=== PATIENT | female | born 1985 | race Caucasian/White ===

== ENCOUNTER 2017-01-19 19:57 | Emergency (ER) | payer MEDICARE, OTHER ==
[2017-01-19 20:09] VITALS: BP 125/75
[2017-01-19] MEDS ORDERED: ALBUTEROL SULFATE/IPRATROPIUM 3 ML NEBU IH ONE ×2 (20:40→20:48)
--- NOTE | 2017-01-19 20:41 | ERNOTE ---
Date of Service: 01/19/17 Time Seen by Provider: 01/19/17 20:37 Stated Complaint: SINUS. COUGH. Presenting Symptoms:: cough, sore throat Source: patient, family Exam Limitations: no limitations Immunizations: IMMUNIZATION HX Immunizations Up to Date Yes History of Influenza Vaccine No Hx Pneumococcal Vaccination No Allergies/Adverse Reactions: Allergies amoxicillin [Amoxicillin] Allergy (Verified 01/19/17 20:09) Penicillins Allergy (Verified 01/19/17 20:09) Home Medications: HOME MEDICATIONS Insulin Aspart [Novolog] 10 unit SQ BID 11/06/12 [Last Taken Unknown] Insulin Glargine,Hum.rec.anlog [Lantus] 20 units SC BID 01/25/15 [Last Taken 20:45] Metformin HCl ER BID 11/19/16 [Last Taken Unknown] Cephalexin 500 mg PO BID #14 tablet 01/19/17 [Last Taken Unknown] Ipratropium/Albuterol Sulfate [Combivent Respimat Inhal [place]] 2 puff IH QID #1 inhaler 01/19/17 [Last Taken Unknown] - History of Present Ilness Narrative: Has had one week of cough initially non-productive but now some minimal greenish sputum. Has developed a sore throat but has not had any chills or fever. Denies dyspnea. No rash. Review of Systems - Review of Systems EYE: Present: no symptoms reported ENT: Present: See HPI Respiratory: Present: See HPI Cardiology: Present: no symptoms reported Gastrointestinal/Abdominal: Present: no symptoms reported Skin: Present: no symptoms reported Neurological: Present: no symptoms reported - Patient's Past Medical History Patient History - Medical: Diabetes Type 2 Insulin Dependent Patient History - Cardiac/Respiratory: No pertinent hx Patient History - Cancer: No Hx of Cancer Patient History - Surgical Procedures: Tubal Ligation - Social History Living Situations: home Smoking Status: Current every day smoker Have you smoked in the past 12 months: Yes Alcohol Use: rarely Drug Use: none - Immunizations Immunizations Up to Date: Yes Hx Pneumococcal Vaccination: No History of Influenza Vaccine: No Physical Exam - Physical Exam General Appearance: Present: wd/wn, alert, other - hoarse voice Eye Exam: Normal inspection: bilateral Ears, Nose, Throat: Present: normal except -, pharyngeal erythema, tonsillar swelling Neck: Present: normal inspection Respiratory: Present: no respiratory distress, normal breath sounds, rhonchi Cardiovascular/Chest: Present: regular rate, rhythm Gastrointestinal/Abdominal: Present: nontender, soft Extremity Exam: Present: normal inspection Neurological Exam: Present: alert, oriented, normal mood/affect ED Progress - Date and Time Seen: Date and Time: 01/19/17 21:33 Improved feeling and cough - Results and Orders Patient's Lab Results:: I have reviewed the patient's lab results. - Vital Signs Patient's Vital Signs:: I have reviewed the patient's vital signs. Vital Signs: Vital Signs 01/19/17 20:06 Temperature 36.7 C Pulse Rate 93 Respiratory 14 Rate Blood Pressure 125/75 O2 Sat by Pulse 96 Oximetry - X-Ray X-Ray #1 X-Ray: chest - Early RLL infiltrate - Progress/Reassessment Chief Complaint: Upper Respiratory Symptoms Plan - Plan Plan: Home with cephalexin and duoneb Follow up with PCP Departure - Departure Clinical Impression: Pharyngitis, Bronchitis Disposition: Home self-care Condition: Fair Instructions: Acute Bronchitis, [id number] Additional Instructions: Use med and inhaler as instructed. Follow up with PCP Referrals: Uriel Whitman MD [Primary Care Provider] - Prescriptions: Cephalexin 500 mg PO BID #14 tablet Ipratropium/Albuterol Sulfate [Combivent Respimat Inhal [place]] 2 puff IH QID #1 inhaler
--- OUTSIDE RECORDS SUMMARY | 2017-01-19 21:06 | XMS REPORT | Continuity of Care Document ---
:1985 Author Organization [facility] [place] [address] Care Team Providers Name Role Phone Unavailable Primary Care Provider Unavailable Source Comments This disclosure is being made pursuant to the [employer] program and maynot contain all information available regarding this patient.[facility] Active Allergies and Adverse Reactions Not on File Current Medications Be aware that medications may not be up to date as of this document. Alwaysverify current medications with the patient. Not on file Active Problems Not on file Social History Tobacco Use Types Packs/Day Years Used Date Never Assessed Plan of Care Health Maintenance Due Date Last Done Comments Retired-Pertussis Vaccine Adult 2004 Retired-Tetanus Vaccine Adult 2004 Pap Smear 2006 Retired-INFLUENZA VACCINE 04/10/2015 Results from Last 3 Months Not on file
== END 2017-01-19 21:44 | disposition home or self-care (01) ==
LOC: ER 19:57
DX: J02.9 Acute pharyngitis, unspecified (principal); Z72.0 Tobacco use; J20.9 Acute bronchitis, unspecified; E11.9 Type 2 diabetes mellitus without complications; Z79.4 Long term (current) use of insulin

== ENCOUNTER 2018-10-24 09:10 | Observation (INO) ==
[2018-10-24 09:39] LABS: Hematocrit 45.1 % (37.0-47.0); Hemoglobin 15.3 gm/dL (12.5-16.0); Mean Cell Volume 96.2 fl (78-100); Mean Corpuscular Hemoglobin 32.6 pg (27-31); Mean Corpuscular Hgb Conc 33.9 g/dl (32-36); Mean Platelet Volume 9.1 fl (8-12.5); Neutrophil # 13.2 K/mm3 (1.3-6.0); Neutrophil % 73.1 % (42-75.0); Platelet Count 341 K/mm3 (150-450); Red Blood Count 4.69 M/mm3 (4.2-5.4); Red Cell Distribution Width 12.2 % (11.5-14.0); White Blood Count 18.1 K/mm3 (4.0-10.5)
[2018-10-24 09:41] LABS: Total Cells Counted 100
[2018-10-24] MEDS ORDERED: MORPHINE SULFATE 4 MG/ML SYRG IV ONE (09:46)
[2018-10-24] MEDS ORDERED: CLINDAMYCIN PHOSPHATE 600 MG in DEXTROSE 5 % IN WATER 100 ML IV ONE ×2 (09:48)
[2018-10-24] MEDS ORDERED: LEVOFLOXACIN IN DEXTROSE 5 % 750 MG/150 ML BAG IV ONE (09:48)
[2018-10-24 09:50] LABS: Albumin * 3.7 gm/dl (3.4-5.0); Anion Gap 10.6 mmol/L (6.8-13.8); BUN/Creatinine Ratio 17.6 (9.0-21.6); CRP 2.6 mg/dL (0.0-0.9); Calcium * 9.1 mg/dL (7.9-10.9); Carbon Dioxide 28.7 mmol/L (24-32.6); Potassium 4.3 mmol/L (3.4-4.6); Total Protein 7.4 gm/dL (6.2-8.2)
[2018-10-24 10:00] LABS: Lymphocyte 16 % (20-51); Monocyte 8 % (0-9); Neutrophil 76 % (42-75); Neutrophil # 13.8 K/mm3 (1.3-6.0); Platelet Estimate Normal (NORMAL); RBC Morphology Normal (NORMAL)
--- NOTE | 2018-10-24 11:28 | ERNOTE ---
Integumentary HPI - Narrative Date of Service: 10/24/18 - General Presenting Symptoms: other - foot pain Time Seen by Provider: 10/24/18 09:42 Source: patient Exam Limitations: no limitations - Immun/Allergies/Home Medications Immunizations: IMMUNIZATION HX Immunizations Up to Date Yes History of Influenza Vaccine Yes Hx Pneumococcal Vaccination No Allergies/Adverse Reactions: Allergies Allergy/AdvReac Type Severity Reaction Status Date / Time amoxicillin [Amoxicillin] Allergy Verified 10/24/18 09:12 Penicillins Allergy Verified 10/24/18 09:12 Home Medications: HOME MEDICATIONS Insulin Degludec [Tresiba Flextouch U-100] 40 unit SQ DAILY 09/18/18 [Last Taken Unknown] sitaGLIPtin PHOSPHATE [Januvia] 100 mg PO DAILY 09/18/18 [Last Taken Unknown] - History of Present Illness Narrative: patient presents with worsening right foot pain and swelling since Thursday. She had noticed a sore on her foot prior to her foot hurting, no injury. She was seen here 2 days ago for this and had an x-ray, I reviewed that report. no trauma. Worsening pain and redness to the foot as well as swelling. no fever noted. Pain worse with weight bearing. Has never had this before. Takes her diabetes medications. Pain in the foot can be severe with weight bearing. Location: Reports: other - left foot\ Quality: Reports: painful Severity: severe Exposure: Reports: no cause identified Modifying Factors - (Improves): Reports: other - rest Modifying Factors - (Worsens): Reports: other - weight bearing\ Associated Symptoms: Reports: edema. Denies: fever Prior Treatment: Reports: recently seen, treated by physician. Denies: currently on antibiotics Review of Systems - Review of Systems Constitutional: Absent: fever EYE: Present: no symptoms reported ENT: Absent: sore throat Respiratory: Absent: shortness of breath Cardiology: Absent: chest pain Gastrointestinal/Abdominal: Absent: abdominal pain Musculoskeletal: Present: See HPI Skin: Present: See HPI Neurological: Absent: weakness All Other Systems: All systems neg except as marked Medical History (Last Reviewed 10/24/18 @ 11:30 by Khalif Powell MD) Type 2 diabetes mellitus Surgical History: Surgical History (Last Reviewed 10/24/18 @ 11:30 by Khalif Powell MD) Hx of tubal ligation Family History: Family History (Last Reviewed 10/24/18 @ 11:30 by Khalif Powell MD) Other No pertinent family history Social History: Preferred Language Citizen Of [place] Smoking Status Current every day smoker Psych History Hx of Depression Alcohol Use none Drug Use none No Social History Section defined Physical Exam - Physical Exam General Appearance: Present: alert, no apparent distress Head Exam: Present: normal inspection, no evidence of injury Eye Exam: Normal inspection: bilateral, PERRL: bilateral Ears, Nose, Throat: Present: normal ENT inspection Neck: Present: normal inspection Respiratory: Present: no respiratory distress, normal breath sounds, no accessory muscle use, lungs clear Cardiovascular/Chest: Present: regular rate, rhythm, normal peripheral pulses Gastrointestinal/Abdominal: Present: normal bowel sounds, nontender, nondistended, soft Back Exam: Present: normal range of motion Extremity Exam: Present: other - redness, swelling, tendneress and warmth right foot. Small 5m ulceration dorsum of the foot. No findings of nec fasc. Strong DP pulse Neurological Exam: Present: alert, no motor/sensory deficits Skin Exam: Present: normal color, warm/dry, other - see extremity exam Progress - Results and Orders Patient's Lab Results:: I have reviewed the patient's lab results. - Vital Signs Patient's Vital Signs:: I have reviewed the patient's vital signs. Vital Signs: Vital Signs 10/24/18 09:15 10/24/18 09:18 10/24/18 10:18 Temperature 36.5 C Pulse Rate 104 H 89 91 Respiratory Rate 16 Blood Pressure 103/71 110/65 118/75 O2 Sat by Pulse Oximetry 100 98 98 - Progress/Reassessment Chief Complaint: Cellulitis Progress Note-Subjective: 10/24/18 11:32 I reviewed the recent x-ray, this was not reported today. D/W Dr Villasenor, will admit for IV ABx. Patient agreeable. Given her DM and extensive cellulitis with elevated ESR, CRP and WBC observation essential. Departure Clinical Impression: Diabetes, Cellulitis - Departure Disposition: Still a patient Condition: Stable
--- NOTE | 2018-10-24 13:00 | HP ---
Chief Complaint - Chief Complaint Date of Service: 10/24/18 Time of Service: 13:00 Chief Complaint: foot swelling History of Present Illness: Patient with uncontrolled diabetes presents with several days of worsening right foot pain. She came to the ED on 10/21 and was x-rayed, which was negative. She started developing some redness on 10/22, and has a small focal erythematous lesion at the base of her third digit. Her daughter thinks she has a crack in her skin between the third and fourth toe. She has been soaking her foot in Epsom salts, without improvement. She has had increasing pain which is interfering with walking. Has never had anything like this before. She was diagnosed with cellulitis in the ER, and given IV Levaquin and clindamycin. She has a 13-year history of type II diabetes. She reports her sugars are usually in the 200s and 300s. She reports taking 100 mg Januvia and 40 units tresiba daily. She denies other symptoms. No previous hospitalizations. Medical History (Last Reviewed 10/24/18 @ 12:14 by Lolly Cheney RN) Type 2 diabetes mellitus Surgical History: Surgical History (Last Reviewed 10/24/18 @ 12:15 by Lolly Cheney RN) Hx of tubal ligation Family History: Family History (Last Reviewed 10/24/18 @ 12:15 by Lolly Cheney RN) Other No pertinent family history Social History: Patient Lives/Resources With Spouse Utilized Occupation factory Preferred Language Ken[place] Do you have any presybeterian or No cultural preference? Smoking Status Current every day smoker Have you smoked in the past 12 Yes months Do you dip or chew tobacco No Psych History Hx of Depression Alcohol Use none Drug Use none No Social History Section defined Review Of Systems (GEN) - Review of Systems Generalized/Overall Review: Absent: Fever Respiratory: Absent: Shortness of Breath Cardiac: Absent: Chest Pain Abdominal: Absent: Nausea, Diarrhea Genitourinary: Present: No Symptoms Reported Skin: Present: Other - Focal erythematous lesion of right foot, with swelling Immunizations: IMMUNIZATION HX Immunizations Up to Date Yes History of Influenza Vaccine Yes Hx Pneumococcal Vaccination No Allergies/Adverse Reactions: Allergies Allergy/AdvReac Type Severity Reaction Status Date / Time amoxicillin [Amoxicillin] Allergy Verified 10/24/18 09:12 Penicillins Allergy Verified 10/24/18 09:12 Home Medications: HOME MEDICATIONS Insulin Degludec [Tresiba Flextouch U-100] 40 unit SQ DAILY 09/18/18 [Last Taken Unknown] sitaGLIPtin PHOSPHATE [Januvia] 100 mg PO DAILY 09/18/18 [Last Taken Unknown] Exam - Exam Vital Signs: Vital Signs - Last Taken Temp 36.2 C 10/24/18 11:50 Pulse 93 10/24/18 11:50 Resp 16 10/24/18 11:50 BP 110/77 10/24/18 11:50 Pulse Ox 99 10/24/18 11:50 Constitutional: Present: Alert, Oriented x3, No distress Respiratory: Present: normal breath sounds, no respiratory distress Cardiovascular/Chest: Present: regular rate, rhythm Abdomen: Present: Normal bowel sounds, soft, nontender Extremity: Present: other - Edema of right foot. 4 mm focal erythematous macule at the base of the third right toe. Faint erythema of dorsal surface of right foot. Fissure between the third and fourth digits Skin Exam: Present: other - Multiple 1 cm healed scars of her ankles, which she reports as being from bug bites Neurologic: Present: normal mood/affect Diagnostic Studies: Abnormal Lab Results 10/24/18 10/24/18 10/24/18 Range/Units 09:25 09:25 09:25 WBC 18.1 H (4.0-10.5) K/mm3 MCH 32.6 H (27-31) pg Immature Gran # (Auto) 0.07 H (0.000-0.0310) K/mm3 Neutrophils % (Manual) 76 H (42-75) % Lymphocytes % 16.8 L (20-51) % Lymphocytes % (Manual) 16 L (20-51) % Neutrophils # 13.2 H (1.3-6.0) K/mm3 Neutrophils # (Manual) 13.8 H (1.3-6.0) K/mm3 Monocytes # 1.6 H (0.0-1.0) k/mm3 Monocytes # (Manual) 1.4 H (0.0-1.0) k/mm3 ESR 30 H (0-15) mm/hr Random Glucose 300 H (70-110) mg/dL ALT 12 L (19-67) U/L C-Reactive Prot, Quant 2.6 H (0.0-0.9) mg/dL Laboratory Results WBC 18.1 K/mm3 (4.0-10.5) H 10/24/18 09:25 RBC 4.69 M/mm3 (4.2-5.4) 10/24/18 09:25 Hgb 15.3 gm/dL (12.5-16.0) 10/24/18 09:25 Hct 45.1 % (37.0-47.0) 10/24/18 09:25 MCV 96.2 fl (78-100) 10/24/18 09:25 MCH 32.6 pg (27-31) H 10/24/18 09:25 MCHC 33.9 g/dl (32-36) 10/24/18 09:25 RDW 12.2 % (11.5-14.0) 10/24/18 09:25 Plt Count 341 K/mm3 (150-450) 10/24/18 09:25 MPV 9.1 fl (8-12.5) 10/24/18 09:25 Immature Gran % (Auto) 0.40 % (0.001-0.429) 10/24/18 09:25 Immature Gran # (Auto) 0.07 K/mm3 (0.000-0.0310) H 10/24/18 09:25 Neutrophils % 73.1 % (42-75.0) 10/24/18 09:25 Neutrophils % (Manual) 76 % (42-75) H 10/24/18 09:25 Lymphocytes % 16.8 % (20-51) L 10/24/18 09:25 Lymphocytes % (Manual) 16 % (20-51) L 10/24/18 09:25 Monocytes % 9.0 % (0.0-9) 10/24/18 09:25 Monocytes % (Manual) 8 % (0-9) 10/24/18 09:25 Eosinophils % 0.4 % (0.0-3.0) 10/24/18 09:25 Basophils % 0.3 % (0.0-1.0) 10/24/18 09:25 Nucleated RBC % 0.0 k/mm3 (0-1) 10/24/18 09:25 Neutrophils # 13.2 K/mm3 (1.3-6.0) H 10/24/18 09:25 Neutrophils # (Manual) 13.8 K/mm3 (1.3-6.0) H 10/24/18 09:25 Lymphocytes # 3.03 k/mm3 (1.5-3.5) 10/24/18 09:25 Lymphocytes # (Manual) 2.9 k/mm3 (1.5-3.5) 10/24/18 09:25 Monocytes # 1.6 k/mm3 (0.0-1.0) H 10/24/18 09:25 Monocytes # (Manual) 1.4 k/mm3 (0.0-1.0) H 10/24/18 09:25 Eosinophils # 0.1 k/mm3 (0.0-0.7) 10/24/18 09:25 Absolute Basophils 0.1 k/mm3 (0.0-0.1) 10/24/18 09:25 Platelet Estimate Normal (NORMAL) 10/24/18 09:25 RBC Morphology Normal (NORMAL) 10/24/18 09:25 ESR 30 mm/hr (0-15) H 10/24/18 09:25 Sodium 134 mmol/L (132-142) 10/24/18 09:25 Plasma Sodium 137 mmol/L (130-142) 10/24/18 09:25 Potassium 4.3 mmol/L (3.4-4.6) 10/24/18 09:25 Chloride 99 mmol/L (97-106) 10/24/18 09:25 Carbon Dioxide 28.7 mmol/L (24-32.6) 10/24/18 09:25 Anion Gap 10.6 mmol/L (6.8-13.8) 10/24/18 09:25 BUN 12 mg/dL (3-23) 10/24/18 09:25 Creatinine 0.68 mg/dL (0.4-1.4) 10/24/18 09:25 Est GFR (Non-Af Amer) 107 mL/min (60-130) 10/24/18 09:25 BUN/Creatinine Ratio 17.6 (9.0-21.6) 10/24/18 09:25 Random Glucose 300 mg/dL (70-110) H 10/24/18 09:25 Calcium 9.1 mg/dL (7.9-10.9) 10/24/18 09:25 Calcium Adj for Albumin 9.0 mg/dL (8.4-10.2) 10/24/18 09:25 Total Bilirubin 1.0 mg/dL (0.0-1.1) 10/24/18 09:25 AST 10 U/L (0-48) 10/24/18 09:25 ALT 12 U/L (19-67) L 10/24/18 09:25 Alkaline Phosphatase 67 U/L (50-170) 10/24/18 09:25 C-Reactive Prot, Quant 2.6 mg/dL (0.0-0.9) H 10/24/18 09:25 Total Protein 7.4 gm/dL (6.2-8.2) 10/24/18 09:25 Albumin 3.7 gm/dl (3.4-5.0) 10/24/18 09:25 Assessment/Plan - Assessment/Plan (1) Cellulitis Assessment: Cellulitis may be secondary to a tinea pedis, as she has a fissure between her second and third toes. This was cultured in the ED. Her uncontrolled diabetes is likely contributing. She was given IV doses of IV Levaquin and clindamycin in the ER. We will continue p.o. clindamycin. X-ray done October 21 was negative. Applied some pressure to the bottom of her foot in the region of her pain, and I do not believe that she has a fluid collection. Her sed rate is not significantly high at 30, so I do not believe she has osteomyelitis. Will ask her to be evaluated by the wound center tomorrow. Problem: Acute Qualifiers: Site of cellulitis of extremity: lower extremity Laterality: right (2) Uncontrolled diabetes mellitus Assessment: She gives herself 40 units tresiba and 100 mg Januvia daily. Will start with 20 units of Lantus and sliding scale insulin, and adjust from there if needed. She reports having blood sugars usually in the 200s and 300s. Ideally, her blood sugar be less than 200 to optimize wound healing. Discussed with her the possibility she may not feel well if her blood sugars are down in the 100s since she is not used to having "controlled" blood sugars. Problem: Acute Qualifiers: Diabetes mellitus type: type 2 Glycemic state: with hyperglycemia Qualified Code(s): E11.65 - Type 2 diabetes mellitus with hyperglycemia
[2018-10-24] MEDS: traMADol HCL 50 MG TABLET PO PRN (16:48)
[2018-10-24] MEDS: INSULIN LISPRO 100 UNITS/ML VIAL SC SCH ×2 (16:53→21:35)
[2018-10-24] MEDS: CLINDAMYCIN HCL 150 MG CAPSULE PO SCH (16:56)
[2018-10-24] MEDS ORDERED: NORMAL SALINE 1,000 ML IV ONE (19:49)
[2018-10-24] MEDS: ACETAMINOPHEN 325 MG TABLET PO PRN (20:04)
[2018-10-24] MEDS ORDERED: INSULIN GLARGINE,HUM.REC.ANLOG 100 UNITS/ML VIAL SC SCH (21:00)
[2018-10-25] MEDS: CLINDAMYCIN HCL 150 MG CAPSULE PO SCH ×5 (00:03→22:47)
[2018-10-25] MEDS: ACETAMINOPHEN 325 MG TABLET PO PRN (05:13)
[2018-10-25 06:43] LABS: Hematocrit 42.7 % (37.0-47.0); Hemoglobin 14.3 gm/dL (12.5-16.0); Mean Corpuscular Hemoglobin 32.5 pg (27-31); Mean Corpuscular Hgb Conc 33.5 g/dl (32-36); Mean Platelet Volume 9.3 fl (8-12.5); Platelet Count 293 K/mm3 (150-450); Red Cell Distribution Width 12.1 % (11.5-14.0); White Blood Count 14.2 K/mm3 (4.0-10.5)
[2018-10-25 06:45] LABS: Total Cells Counted 100
[2018-10-25 06:56] LABS: Atypical (Reactive) Lymph 1 % (0-2); Eosinophil 1 % (0-3); Lymphocyte 19 % (20-51); Monocyte 9 % (0-9); Neutrophil 70 % (42-75); Neutrophil # 9.9 K/mm3 (1.3-6.0)
[2018-10-25 06:57] LABS: Dohle Bodies Trace; Platelet Estimate Normal (NORMAL); Toxic Granulation Trace
[2018-10-25] MEDS: INSULIN LISPRO 100 UNITS/ML VIAL SC SCH ×4 (07:34→21:46)
[2018-10-25] MEDS: sitaGLIPtin PHOSPHATE 50 MG TABLET PO SCH (09:55)
--- NOTE | 2018-10-25 09:56 | CONS ---
[facility] - General Date of Service: 10/25/18 Source: patient Exam Limitations: no limitations - History of Present Illness Initial Comments: Patient is a 32 year old female, recently admitted to the hospital regarding swelling and pain in her right foot. She states that last 10/12/2018, she noted a tingling sensation to her foot. She then developed redness, swelling and pain. She states that the pain is so severe, that she has to crawl on the ground. She states that she has developed bruising between the toes as well. She denies any trauma to the area. There was no treatment prior to the hospitalization. She denies similar symptoms in the past. The patient is diabetic, and she states that her blood sugars are not well controlled. Timing/Duration: getting worse Allergies/Adverse Reactions: Allergies amoxicillin [Amoxicillin] Allergy (Verified 10/24/18 09:12) Penicillins Allergy (Verified 10/24/18 09:12) Home Medications: Home Medications Medication Instructions Recorded Last Taken RX: Insulin Degludec [Tresiba 40 unit SQ DAILY 09/18/18 Unknown Flextouch U-100] RX: sitaGLIPtin PHOSPHATE [Januvia] 100 mg PO DAILY 09/18/18 Unknown RX: Ciprofloxacin HCl 750 mg PO BID #9 tab 10/27/18 Unknown RX: Clindamycin HCl [Cleocin] 300 mg PO Q6H #18 cap 10/27/18 Unknown RX: Silver Sulfadiazine [Silvadene] 1 appl TOPICAL DAILY #1 jar 10/27/18 Unknown RX: traMADol HCL [Ultram] 50 mg PO Q6H PRN #14 tab 10/27/18 Unknown Medications - Medications Current Medications: Current Medications Acetaminophen (Tylenol) 650 mg PO Q6H PRN PRN Reason: Mild pain (pain scale 1-3) Stop: 11/23/18 15:16 Last Admin: 10/25/18 05:13 Dose: 650 mg Documented by: Clindamycin HCl (Cleocin) 300 mg PO Q6H LEYLA; Protocol Stop: 11/23/18 17:01 Last Admin: 10/25/18 05:10 Dose: 300 mg Documented by: Insulin Glargine (Lantus) 20 units SC HS LEYLA Stop: 11/23/18 21:01 Last Admin: 10/24/18 21:32 Dose: 20 units Documented by: Insulin Human Lispro (Humalog) 0 units SC [facility]; Protocol Stop: 11/23/18 17:01 Last Admin: 10/25/18 07:34 Dose: Not Given Documented by: Tramadol HCl (Ultram) 50 mg PO Q6H PRN PRN Reason: Pain Stop: 11/23/18 15:16 Last Admin: 10/24/18 16:48 Dose: 50 mg Documented by: Review of Systems - Review of Systems Generalized/Overall Review: Present: Weakness, Fever EENTM: Absent: Nose Congestion Respiratory: Absent: Cough Cardiac: Present: Edema. Absent: Chest Pain Abdominal: Present: Nausea. Absent: Vomiting Musculoskeletal: Present: Joint Pain Neurological: Present: Headache. Absent: Numbness, Tingling Skin: Present: Lesions, Change in Color, Bruising Physical Examination - Exam Vital Signs: Vital Signs - Last Taken Temp 36.6 C 10/25/18 06:25 Pulse 80 10/25/18 06:25 Resp 16 10/25/18 06:25 BP 88/53 L 10/25/18 06:25 Pulse Ox 97 10/25/18 06:25 O2 Oxygen Delivery Method Room Air Constitutional: Present: Alert, Cooperative ENT Exam: Present: hearing grossly normal Respiratory: Present: no respiratory distress Skin Exam: Present: warm/dry, other - the right foot is edematous. there is a fissure between the 3rd and 4th toes. small amount of drainage. erythema present in the foot. brusing at the base of the 3rd and 4th toes. she also has a healing blister at the proximal aspect of the foot. - Results and Findings: Lab/Microbiology results last 24 hrs: Abnormal/Pending Laboratory Last 24 HRS 10/25/18 10/24/18 10/24/18 06:00 09:25 09:25 WBC 14.2 H D MCH 32.5 H Neutrophils % (Manual) 76 H Lymphocytes % (Manual) 19 L 16 L Neutrophils # (Manual) 9.9 H 13.8 H Monocytes # (Manual) 1.3 H 1.4 H ESR 30 H Culture 10/24/18 09:41 Blood Culture - Preliminary Blood NO GROWTH 24 HOURS 10/24/18 09:25 Blood Culture - Preliminary Blood NO GROWTH 24 HOURS 10/24/18 09:55 Wound Culture - Preliminary Foot - Right Ruling Out Pathogen - Assessments/Findings (1) Cellulitis Diagnosis(s): Recommend using Aquacel Ag, placed between the toes. This will absorb any drainage, and help keep the area free from bacteria. The dressing will be changed daily, and the area washed thoroughly at dressing changes. The patient would benefit from an evaluation with Dr Acharya, Podiatry. Problem: Acute Qualifiers: Site of cellulitis of extremity: lower extremity Laterality: right
[2018-10-25] MEDS: CIPROFLOXACIN HCL PO SCH ×4 (12:00→21:44)
[2018-10-25] MEDS: CIPROFLOXACIN HCL 750 MG TABLET PO SCH ×2 (12:01→21:30)
--- NOTE | 2018-10-25 12:46 | PN ---
Subjective - Date and Time Seen Date: 10/25/18 Time: 12:36 Subjective Narrative: Patient reports ongoing foot pain in that right foot. She has been on bedrest since yesterday and has not walked. The tramadol helps with her pain. Denies fevers. No new concerns. Objective - Review of Systems Generalized/Overall Review: Denies: Fever Respiratory: Denies: Cough, Shortness of Breath Cardiac: Denies: Chest Pain Abdominal: Denies: Nausea, Diarrhea Genitourinary Symptoms: Reports: No Symptoms Reported Musculoskeletal Complaints: Reports: Other - right foot pain, bruising - Vitals Vitals: Last Vital Signs Temp 37 C 10/25/18 12:10 Pulse 80 10/25/18 12:10 Resp 18 10/25/18 12:10 BP 117/68 10/25/18 12:10 Pulse Ox 99 10/25/18 12:10 - Abnormal Lab Findings Abnormal Lab Findings: Abnormal Lab Results 10/25/18 Range/Units 06:00 WBC 14.2 H D (4.0-10.5) K/mm3 MCH 32.5 H (27-31) pg Lymphocytes % (Manual) 19 L (20-51) % Neutrophils # (Manual) 9.9 H (1.3-6.0) K/mm3 Monocytes # (Manual) 1.3 H (0.0-1.0) k/mm3 - Exam Constitutional: Present: Alert, Oriented x3, Cooperative, No distress Respiratory: Present: normal breath sounds, no respiratory distress Cardiovascular/Chest: Present: regular rate, rhythm, other - 2+ dorsalis pedis pulse of right foot Extremity: Present: other - worsening bruising at metatarsophalangeal joint. No change in erythema. fissure between 3rd and 4th toes Neurologic: Present: normal mood/affect Eye contact: Present: cooperative, good eye contact Assessment/Plan - Problems/Diagnosis (1) Cellulitis Problem: Acute Qualifiers: Site of cellulitis of extremity: lower extremity Laterality: right Narrative: Worsening bruising from yesterday. Will add ciprofloxacin to cover for pseudomonas given her DM history, obtain an MRI to make sure she does not have a fluid collection or osteomyelitis, and consult podiatry. Continue po clindamycin. (2) Uncontrolled diabetes mellitus Problem: Chronic Qualifiers: Diabetes mellitus type: type 2 Glycemic state: with hyperglycemia Qualified Code(s): E11.65 - Type 2 diabetes mellitus with hyperglycemia Narrative: Her lowest glucose level was 192. Will increase lantus to 25 U, and continue low dose sliding scale insulin.
[2018-10-25] MEDS: traMADol HCL 50 MG TABLET PO PRN (17:13)
--- NOTE | 2018-10-25 18:08 | CONS ---
- Reason for consultation (1) Cellulitis Date of Service: 10/25/18 HPI - General Date of Service: 10/25/18 Narrative: Pt evaluated at bedside. She is resting comfortably. She is a poorly controlled diabetic, with blood sugars ranging in the 200-300's. States that she was seen in the ED on 10/21/18 for what she describes as some tingling in her right foot at the bases of the 2nd-4th toes, as well as a small spot at the base of the 3rd/4th toes. Xrays completed, showing no concerns for bone infection. She was diagnosed with a ganglion cyst and discharged home. Then yesterday she noticed some increased redness, swelling, and worsening pain in the right foot. States it is difficult for her to walk due to the pain. She came back to the ED, and was then admitted with cellulitis of the right foot. She is currently under the care of Dr. Villasenor. I was consulted for possible surgical care. MRI has been completed. Source: patient Exam Limitations: no limitations - History of Present Illness Allergies/Adverse Reactions: Allergies amoxicillin [Amoxicillin] Allergy (Verified 10/24/18 09:12) Penicillins Allergy (Verified 10/24/18 09:12) Home Medications: Home Medications Medication Instructions Recorded Last Taken Insulin Degludec [Tresiba 40 unit SQ DAILY 09/18/18 Unknown Flextouch U-100] sitaGLIPtin PHOSPHATE [Januvia] 100 mg PO DAILY 09/18/18 Unknown Medications - Medications Current Medications: Current Medications Acetaminophen (Tylenol) 650 mg PO Q6H PRN PRN Reason: Mild pain (pain scale 1-3) Stop: 11/23/18 15:16 Last Admin: 10/25/18 05:13 Dose: 650 mg Documented by: Ciprofloxacin (Cipro) 750 mg PO BID [facility]; Protocol Stop: 11/24/18 11:46 Last Admin: 10/25/18 12:01 Dose: Not Given Documented by: Ciprofloxacin 500 mg/ (Ciprofloxacin 250 mg) 750 mg PO BID [facility] Stop: 11/24/18 12:01 Last Admin: 10/25/18 12:00 Dose: 750 mg Documented by: Clindamycin HCl (Cleocin) 300 mg PO Q6H [facility]; Protocol Stop: 11/23/18 17:01 Last Admin: 10/25/18 17:13 Dose: 300 mg Documented by: Insulin Human Lispro (Humalog) 0 units SC ACHSINS [facility]; Protocol Stop: 11/23/18 17:01 Last Admin: 10/25/18 17:12 Dose: 4 units Documented by: Sitagliptin Phosphate (Januvia) 100 mg PO DAILY [facility] Stop: 11/24/18 09:01 Last Admin: 10/25/18 09:55 Dose: 100 mg Documented by: Tramadol HCl (Ultram) 50 mg PO Q6H PRN PRN Reason: Pain Stop: 11/23/18 15:16 Last Admin: 10/25/18 17:13 Dose: 50 mg Documented by: Review of Systems - Review of Systems Generalized/Overall Review: Absent: Chills, Fever Respiratory: Absent: Shortness of Breath Cardiac: Present: Edema Abdominal: Absent: Nausea, Vomiting Musculoskeletal: Present: Other - right foot pain Neurological: Present: Tingling Skin: Present: Other - redness right foot, fissuring between 3rd and 4th toes right foot Physical Examination - Exam Narrative: MRI reviewed, agree with report as follows: 1. Localized edema at the dorsal aspect of the foot, at the level of the third through fifth metatarsal bones with potential minimal involvement of the extensor tendons overlying the metatarsal bones, suggestive of localized cellulitis and minimal tenosynovitis. 2. No evidence for definable soft tissue fluid collection/abscess. 3. No definite signs of osteomyelitis of the third through fifth metatarsal bones. There is nonspecific edema of the distal first metatarsal bone at the metatarsal neck which is somewhat equivocal. Given no adjacent soft tissue abnormalities, this is likely reactive edema but early osteomyelitis would be difficult to exclude, should also be considered clinically. There is similar finding seen at the tip of the first toe at the distal phalanx. Vital Signs: Vital Signs - Last Taken Temp 37.2 C 10/25/18 16:45 Pulse 97 10/25/18 16:45 Resp 16 10/25/18 16:45 BP 105/60 10/25/18 16:45 Pulse Ox 100 10/25/18 16:45 O2 Oxygen Delivery Method Room Air Constitutional: Present: Alert, Oriented x3, Cooperative Peripheral Pulses: dorsalis-pedis (R): 2+ - PT pulse 2+ Extremity: Present: normal capillary refill, pedal edema, other - Pain on palpation at the bases of toes 2-4 right foot, painful ROM 4th toe right foot Skin Exam: Present: other - There is a fissure noted to the right foot between the 3rd and 4th toes, diffucult to fully evaluate due to significant pain on manipulation of the toes. There appears to be scant bloody drainage present. Erythema extends from the 3rd webspace to the dorsum of the foot just distal to the ankle, and is marked today with a marking pen. Skin is warm to touch. There appears to be a small area of ecchymosis at the bases of the 3rd ad 4th toes, no injury per pt. Remaining skin with small scars scattered, pt states from bug bites. Appearance: Present: appropriate appearance - Results and Findings: Lab/Microbiology results last 24 hrs: Abnormal/Pending Laboratory Last 24 HRS 10/25/18 06:00 WBC 14.2 H D MCH 32.5 H Lymphocytes % (Manual) 19 L Neutrophils # (Manual) 9.9 H Monocytes # (Manual) 1.3 H Culture 10/24/18 09:41 Blood Culture - Preliminary Blood NO GROWTH 24 HOURS 10/24/18 09:25 Blood Culture - Preliminary Blood NO GROWTH 24 HOURS 10/24/18 09:55 Wound Culture - Preliminary Foot - Right Ruling Out Pathogen - Assessments/Findings (1) Cellulitis Diagnosis(s): MRI results reviewed with pt. I do not see any current need for surgical care with no evidence for abscess formation. She does have a small fissure between the 3rd and 4th toes which is likely source of her current cellulitis. Will order Silvadene cream to apply to fissured area. Continue with current ABX, adjust pending culture results. Keep foot washed daily with soap and water, dry well between toes. Consider addition of anti-fungal cream if needed. Advise tight glucose control, as her high blood sugars may also be contributing to the severity of her infection. Will continue to follow. Problem: Acute Qualifiers: Site of cellulitis of extremity: lower extremity Laterality: right
[2018-10-25] MEDS ORDERED: INSULIN GLARGINE,HUM.REC.ANLOG 100 UNITS/ML VIAL SC SCH (21:00)
[2018-10-26] MEDS: CLINDAMYCIN HCL 150 MG CAPSULE PO SCH ×4 (05:04→23:15)
[2018-10-26 05:45] LABS: Hematocrit 46.7 % (37.0-47.0); Hemoglobin 15.7 gm/dL (12.5-16.0); Mean Cell Volume 96.3 fl (78-100); Mean Corpuscular Hemoglobin 32.4 pg (27-31); Mean Corpuscular Hgb Conc 33.6 g/dl (32-36); Mean Platelet Volume 9.1 fl (8-12.5); Platelet Count 310 K/mm3 (150-450); Red Blood Count 4.85 M/mm3 (4.2-5.4); White Blood Count 14.7 K/mm3 (4.0-10.5)
[2018-10-26 05:48] LABS: Total Cells Counted 100
[2018-10-26 06:18] LABS: Eosinophil 1 % (0-3); Lymphocyte 36 % (20-51); Monocyte 4 % (0-9); Neutrophil 59 % (42-75); Neutrophil # 8.7 K/mm3 (1.3-6.0)
[2018-10-26 06:19] LABS: Platelet Estimate Normal (NORMAL); RBC Morphology Normal (NORMAL)
[2018-10-26 06:35] LABS: Hemoglobin A1C 9.4 % (4.00-6.0)
[2018-10-26] MEDS: INSULIN LISPRO 100 UNITS/ML VIAL SC SCH ×4 (07:22→21:24)
[2018-10-26] MEDS: CIPROFLOXACIN HCL PO SCH ×4 (09:53→21:19)
[2018-10-26] MEDS: sitaGLIPtin PHOSPHATE 50 MG TABLET PO SCH (09:54)
[2018-10-26] MEDS: SILVER SULFADIAZINE 25 APPL JAR TP SCH (10:20)
[2018-10-26] MEDS: CIPROFLOXACIN HCL 750 MG TABLET PO SCH (10:20)
--- NOTE | 2018-10-26 16:06 | PN ---
Subjective - Date and Time Seen Date: 10/26/18 Time: 15:50 Subjective Narrative: Pt evaluated at bedside resting. She has been up with PT today, so her foot is a little more sore. Her culture has returned showing no growth. She denies an N/V/F/C/SOB. States overall her foot is feeling better, other than sore from PT. Silvadene was applied between her 3rd and 4th toes on her right foot earlier today. She continues on IV ABX without complication. Objective - Review of Systems Generalized/Overall Review: Denies: Chills, Fever Respiratory: Denies: Shortness of Breath Cardiac: Reports: Edema - right foot Abdominal: Denies: Nausea, Vomiting Neurological: Reports: Tingling Skin: Reports: Bruising, Other - redness right foot - Vitals Vitals: Last Vital Signs Temp 36.7 C 10/26/18 14:11 Pulse 89 10/26/18 14:11 Resp 18 10/26/18 14:11 BP 105/62 10/26/18 14:11 Pulse Ox 99 10/26/18 14:11 - Abnormal Lab Findings Abnormal Lab Findings: Abnormal Lab Results 10/26/18 10/26/18 Range/Units 05:41 05:41 WBC 14.7 H (4.0-10.5) K/mm3 MCH 32.4 H (27-31) pg Neutrophils # (Manual) 8.7 H (1.3-6.0) K/mm3 Lymphocytes # (Manual) 5.3 H (1.5-3.5) k/mm3 Hemoglobin A1c 9.4 H (4.00-6.0) % - Exam Constitutional: Present: Alert, Oriented x3, Cooperative Cardiovascular/Chest: Present: normal peripheral pulses Extremity: Present: pedal edema - right, other - right foot pain - improved from visit yesterday Skin Exam: Present: other - Right foot - ecchymosis remains about the base of the 3rd and 4th toes, unchanged. Erythema extends from the 3rd webspace into the dorsum of the foot, is improving as per previous demarcation made yesterday. Swelling has also improved, now with easily visible skin lines present. Today, I am able to separate the 3rd and 4th toes to better visualize the previous fissure. Still with pain on manipulation of the toes, but less intense. There appears to be 2 puncture sites in the webspace - unsure if this is from a possible bug bite vs puncture from pet hair as there have been numerous pet hairs cleaned from her foot on exam yesterday and today vs other puncture of skin. This is likely source of her current infection. Appearance: Present: appropriate appearance Eye contact: Present: cooperative Assessment/Plan - Problems/Diagnosis (1) Cellulitis Problem: Acute Qualifiers: Site of cellulitis of extremity: lower extremity Laterality: right Narrative: Her cellulitis appears to be improving some with her current ABX. Will continue at this time. Do not feel she is quite ready to be discharged home as she does still have some intense redness about the bases of the toes. With visible punctures in the webspace, discussed with patient possible bedside debridement tomorrow if she is not showing any more improvement. Will plan to inject with local anesthetic if debridement is needed. Advised that there may be retained pet hairs in these puncture sites that could be causing her infection, so may need to make just a small stab incision over these punctures to further explore. There is no guarantee that any foreign body will be found, nor will this guarantee her to resolve her infection, however if there is a foreign body present, or small abscess that was not shown on MRI, she may continue to develop infections until it is removed/drained. Pt is in agreement with this plan. I will plan to re-evaluate tomorrow. Will continue with application of Silvadene cream to webspace daily at this time.
[2018-10-26] MEDS: traMADol HCL 50 MG TABLET PO PRN (16:49)
--- NOTE | 2018-10-26 17:00 | PN ---
Subjective - Date and Time Seen Date: 10/26/18 Time: 16:38 Subjective Narrative: Patient reports having increased mobility in her foot. She continues to have pain, and had not yet walked this morning, however is able to walk to the bathroom using just her heel on the right foot. Appetite is intact. No new concerns. Objective - Review of Systems Generalized/Overall Review: Denies: Fever Respiratory: Denies: Shortness of Breath Cardiac: Denies: Chest Pain Abdominal: Denies: Nausea Genitourinary Symptoms: Reports: No Symptoms Reported Skin: Reports: Change in Color - continued purplish discoloration of right foot at 3rd MT joint - Vitals Vitals: Last Vital Signs Temp 36.7 C 10/26/18 14:11 Pulse 89 10/26/18 14:11 Resp 18 10/26/18 14:11 BP 105/62 10/26/18 14:11 Pulse Ox 99 10/26/18 14:11 - Abnormal Lab Findings Abnormal Lab Findings: Abnormal Lab Results 10/26/18 10/26/18 Range/Units 05:41 05:41 WBC 14.7 H (4.0-10.5) K/mm3 MCH 32.4 H (27-31) pg Neutrophils # (Manual) 8.7 H (1.3-6.0) K/mm3 Lymphocytes # (Manual) 5.3 H (1.5-3.5) k/mm3 Hemoglobin A1c 9.4 H (4.00-6.0) % - Exam Constitutional: Present: Alert, Cooperative Respiratory: Present: normal breath sounds, no respiratory distress Cardiovascular/Chest: Present: regular rate, rhythm Extremity: Present: swelling - 1+ in right foot, improved Skin Exam: Present: skin rash, other - erythema improved, but worsened purplish discoloration. multiple old 1 cm scars of bilateral ankles Eye contact: Present: cooperative, good eye contact Assessment/Plan - Problems/Diagnosis (1) Cellulitis Problem: Acute Qualifiers: Site of cellulitis of extremity: lower extremity Laterality: right Narrative: MRI showed "Localized edema at the dorsal aspect of the foot, at the level of the third through fifth metatarsal bones with potential minimal involvement of the extensor tendons overlying the metatarsal bones as discussed above, suggestive of localized cellulitis and minimal tenosynovitis. No evidence for definable soft tissue fluid collection/abscess. No definite signs of osteomyelitis of the third through fifth metatarsal bones. There is nonspecific edema of the distal fifth metatarsal bone at the metatarsal neck which is somewhat equivocal. Given no adjacent soft tissue abnormalities, this is likely reactive edema but early osteomyelitis would be difficult to exclude, should also be considered clinically. There is similar finding seen at the tip of the first toe at the distal phalanx." Received one dose of IV levaquin in the ED. Today is day 2 of cipro, and day 3 of clinda, and the erythema, swelling, and mobility is improving, but the purplish discoloration is worsening. Dr. Acharya also following, and appreciate her assistance. May still need surgical intervention for healing. She likely has tinea pedis that contributed to her cellulitis, but will need to ensure she does not have osteomyelitis before DC. (2) Uncontrolled diabetes mellitus Problem: Chronic Qualifiers: Diabetes mellitus type: type 2 Glycemic state: with hyperglycemia Qualified Code(s): E11.65 - Type 2 diabetes mellitus with hyperglycemia Narrative: She gives herself 40 units tresiba and 100 mg Januvia daily. Started at 20 U lantus, but sugars close to 300, and lantus increased to 25 U last night. She still has glucose consistently higher than 200, and will increase to 30 U. A1C of 9.6%. Will need to optimize insulin, to promote healing.
[2018-10-26] MEDS ORDERED: INSULIN GLARGINE,HUM.REC.ANLOG 100 UNITS/ML VIAL SC SCH (21:00)
[2018-10-27] MEDS: CLINDAMYCIN HCL 150 MG CAPSULE PO SCH ×2 (05:05→11:52)
[2018-10-27] MEDS: INSULIN LISPRO 100 UNITS/ML VIAL SC SCH ×2 (06:47→11:52)
[2018-10-27] MEDS: ACETAMINOPHEN 325 MG TABLET PO PRN ×2 (06:55→13:50)
[2018-10-27] MEDS: SILVER SULFADIAZINE 25 APPL JAR TP SCH (09:10)
[2018-10-27] MEDS: sitaGLIPtin PHOSPHATE 50 MG TABLET PO SCH (09:10)
[2018-10-27] MEDS: CIPROFLOXACIN HCL PO SCH ×2 (09:10)
[2018-10-27] MEDS ORDERED: LIDOCAINE HCL 10 ML VIAL IJ ONE (13:34)
--- NOTE | 2018-10-27 14:32 | PN ---
Subjective - Date and Time Seen Date: 10/27/18 Time: 13:30 Subjective Narrative: Pt evaluated at bedside resting. She has been applying ice to her foot today, on and off since 11:00 am. Relates it feels a little "numb" from the ice. She denies an N/V/F/C/SOB. States overall her foot continues feeling better. Silvadene was applied between her 3rd and 4th toes on her right foot earlier today. She continues on oral ABX without complication. Discussion was held with pt yesterday about potential bedside I&D if her redness and pain continued. She is hopeful to go home today. Objective - Review of Systems Generalized/Overall Review: Denies: Chills, Fever, Malaise Respiratory: Denies: Shortness of Breath Abdominal: Denies: Nausea, Vomiting, Diarrhea Musculoskeletal Complaints: Reports: Other - foot pain - improving Skin: Reports: Other - redness right foot - improving - Vitals Vitals: Last Vital Signs Temp 36.7 C 10/27/18 13:00 Pulse 83 10/27/18 13:00 Resp 16 10/27/18 13:00 BP 101/58 10/27/18 13:00 Pulse Ox 96 10/27/18 13:00 - Exam Constitutional: Present: Alert, Oriented x3, Cooperative Extremity: Present: pedal edema - improved, other - right foot pain - improved Skin Exam: Present: other - Right foot - ecchymosis remains about the base of the 3rd and 4th toes, unchanged. Erythema extends from the 3rd webspace into th e dorsum of the foot, continues improving as per previous demarcation, most intense at the base of 3rd and 4th toes. Swelling has also improved, now with easily visible skin lines present. I am able to separate the 3rd and 4th toes again today. Still with pain on manipulation of the toes, but less intense. There remains 2 puncture sites in the webspace, unchanged from yesterday. Upon lancing of the skin between these punctures, there is approximately 1 mL of purulent fluid expressed from the webspace. This fluid is cultured. Appearance: Present: appropriate appearance Eye contact: Present: cooperative Assessment/Plan - Problems/Diagnosis (1) Cellulitis Problem: Acute Qualifiers: Site of cellulitis of extremity: lower extremity Laterality: right Narrative: Continues to improve with current ABX therapy, however there does remain some intense redness at the base of 3rd and 4th toes. Discussion is again held with patient on treatment for her continued redness, to include continued oral ABX vs bedside I&D with continued oral ABX. Pt gives verbal agreement to bedside I&D. A local anesthetic block, consisting of 20 mL of a 1:1 mix of 1% Lidocaine and 0.5 % Marcaine without EPI, was injected into the 3rd webspace of the right foot. The foot was then scrubbed and prepped in asceptic fashion. Next, a #11 blade was utilized to create a small stab incision between the 2 puncture sites between the 3rd and 4th toes. After incision is created, pressure is applied to the foot and approximately 1 mL of purulent fluid is expressed. A swab culture was obtained from this drainage and will be sent for evaluation. Compression is continued until only bloody drainage remained. Tissues are inspected, and any necrotic tissue was excised. The site was then dressed with Silvadene cream and dressed with a sterile compressive dressing of dry gauze and tape. Pt tolerated this procedure well without complication. Pt ok for discharge home today following drainage of abscess. May continue current ABX and will adjust when culture results are available. She is instructed on dressing changes at home, she is to wash foot well with soap and water, pat dry with a clean towel, and apply Silvadene cream, dry gauze, and tape. Dressings are to be changed daily. Will schedule pt to follow up in my office this 10/29/2018. She is educated on worsening SOI and she is to seek medical attention immediately if any develop.
--- NOTE | 2018-10-27 14:58 | DS ---
(1) Cellulitis Problem: Acute Qualifiers: Site of cellulitis of extremity: lower extremity Laterality: right (2) Uncontrolled diabetes mellitus Problem: Chronic Qualifiers: Diabetes mellitus type: type 2 Glycemic state: with hyperglycemia Qualified Code(s): E11.65 - Type 2 diabetes mellitus with hyperglycemia Description of Stay: Patient with uncontrolled diabetes presented with several days of worsening right foot pain. She came to the ED on 10/21 and was x-rayed, which was negative. She started developing some redness on 10/22, and has a small focal erythematous lesion at the base of her third digit. Her daughter thinks she has a crack in her skin between the third and fourth toe. She has been soaking her foot in Epsom salts, without improvement. She has had increasing pain which is interfering with walking. Has never had anything like this before. She was diagnosed with cellulitis in the ER, and given IV Levaquin and clindamycin. PO Clindamycin continued, and ciprofloxacin added on 10/24 when she was not significantly better. Dr. Acharya was consulted and MRI done, which did not reveal abscess or definite osteomyelitis. Dr. Acharya's evaluation states "There appears to be 2 puncture sites in the webspace - unsure if this is from a possible bug bite vs puncture from pet hair as there have been numerous pet [place] irs cleaned from her foot on exam yesterday and today vs other puncture of skin. This is likely source of her current infection." She had some purplish discoloration, and local I&D was done on 10/27 which was able to drain 1 cc purulent fluid. She had improved swelling and mobility by the day of discharge, 10/27. She was instructed on dressing changes at home, she is to wash foot well with soap and water, pat dry with a clean towel, and apply Silvadene cream, dry gauze, and tape. Dressings are to be changed daily. Will schedule pt to follow up in Dr Acharya's office this 10/29/2018. She has a 13-year history of type II diabetes. She reports her sugars are usually in the 200s and 300s. She reports taking 100 mg Januvia and 40 units tresiba daily. During hospitalization, increasing doses of lantus were used up to 30 U, with low dose sliding scale insulin. Discussed importance of glucose control, with goals less than 200 to promote healing. Procedures Performed: none Results and Findings: Pending Mircobiology Results 10/24/18 09:41 Blood Blood Culture - Preliminary NO GROWTH AFTER 48 HOURS 10/24/18 09:25 Blood Blood Culture - Preliminary NO GROWTH AFTER 48 HOURS Lab Pending Results 10/24/18 09:25: WBC 18.1 H, RBC 4.69, Hgb 15.3, Hct 45.1, MCV 96.2, MCH 32.6 H, MCHC 33.9, RDW 12.2, Plt Count 341, MPV 9.1, Immature Gran % (Auto) 0.40, Immature Gran # (Auto) 0.07 H, Neutrophils % 73.1, Neutrophils % (Manual) 76 H, Lymphocytes % 16.8 L, Lymphocytes % (Manual) 16 L, Monocytes % 9.0, Monocytes % (Manual) 8, Eosinophils % 0.4, Basophils % 0.3, Nucleated RBC % 0.0, Neutrophils # 13.2 H, Neutrophils # (Manual) 13.8 H, Lymphocytes # 3.03, Lymphocytes # (Manual) 2.9, Monocytes # 1.6 H, Monocytes # (Manual) 1.4 H, Eosinophils # 0.1, Absolute Basophils 0.1, Platelet Estimate Normal, RBC Morphology Normal 10/24/18 09:25: Sodium 134, Plasma Sodium 137, Potassium 4.3, Chloride 99, Carbon Dioxide 28.7, Anion Gap 10.6, BUN 12, Creatinine 0.68, Est GFR (Non-Af Amer) 107, BUN/Creatinine Ratio 17.6, Random Glucose 300 H, Calcium 9.1, Calcium Adj for Albumin 9.0, Total Bilirubin 1.0, AST 10, ALT 12 L, Alkaline Phosphatase 67, C-Reactive Prot, Quant 2.6 H, Total Protein 7.4, Albumin 3.7 10/24/18 09:25: ESR 30 H 10/25/18 06:00: WBC 14.2 H D, RBC 4.40, Hgb 14.3, Hct 42.7, MCV 97.0, MCH 32.5 H, MCHC 33.5, RDW 12.1, Plt Count 293, MPV 9.3, Neutrophils % (Manual) 70, Lymphocytes % (Manual) 19 L, Monocytes % (Manual) 9, Eosinophils % (Manual) 1, Neutrophils # (Manual) 9.9 H, Lymphocytes # (Manual) 2.7, Monocytes # (Manual) 1.3 H, Eosinophils # (Manual) 0.1, Atypic/Reactive Lymphs 1, Toxic Granulation Trace, Dohle Bodies Trace, Platelet Estimate Normal 10/26/18 05:41: WBC 14.7 H, RBC 4.85, Hgb 15.7, Hct 46.7, MCV 96.3, MCH 32.4 H, MCHC 33.6, RDW 12.0, Plt Count 310, MPV 9.1, Neutrophils % (Manual) 59, Lymphocytes % (Manual) 36, Monocytes % (Manual) 4, Eosinophils % (Manual) 1, Neutrophils # (Manual) 8.7 H, Lymphocytes # (Manual) 5.3 H, Monocytes # (Manual) 0.6, Eosinophils # (Manual) 0.1, Platelet Estimate Normal, RBC Morphology Normal 10/26/18 05:41: Mean Blood Glucose 227, Hemoglobin A1c 9.4 H Discharge Location: Home Disposition: Home self-care Condition: Stable Discharge Activity: Activity as tolerated Discharge Diet: Consistent carbs Referrals: Marjorie Quan ARNP [Primary Care Provider] - One Week Falguni Acharya DPM [Staff Physician] - 10/29/18 Consultation Done:: Dr Acharya Additional Patient Instructions (free text): -Please make TCM appointment unless correction discharge. Thank you! Pretty @ [phone]. Follow-up with Dr. Acharya on 10/29/18, check in at 11 a.m. Prescriptions (Any new or edited meds): Ciprofloxacin HCl 750 mg PO BID #9 tab Clindamycin HCl [Cleocin] 300 mg PO Q6H #18 cap Silver Sulfadiazine [Silvadene] 1 appl TOPICAL DAILY #1 jar traMADol HCL [Ultram] 50 mg PO Q6H PRN #14 tab PRN Reason: Pain Complete Home Medications List: Complete Home Medication List: Insulin Degludec [Tresiba Flextouch U-100] 40 unit SQ DAILY 09/18/18 sitaGLIPtin PHOSPHATE [Januvia] 100 mg PO DAILY 09/18/18 Ciprofloxacin HCl 750 mg PO BID #9 tab 10/27/18 Clindamycin HCl [Cleocin] 300 mg PO Q6H #18 cap 10/27/18 Silver Sulfadiazine [Silvadene] 1 appl TOPICAL DAILY #1 jar 10/27/18 traMADol HCL [Ultram] 50 mg PO Q6H PRN #14 tab 10/27/18
[2018-10-27 15:38] VITALS: BP 113/70
== END 2018-10-27 16:05 | disposition home or self-care (01) ==
LOC: MS 09:10 → ER 09:10 → MS 11:50
PROVIDERS: ADMIT Family Medicine; ATTEND Family Medicine
DX: B35.3 Tinea pedis; E11.65 Type 2 diabetes mellitus with hyperglycemia; L03.90 Cellulitis, unspecified
CPT/HCPCS: 10060; 36415; 73720; 80053; 83036; 85025; 85652; 86140; 87040; 87070; 87075; 96361; 96365; 96366; 96367; 96372; 96375; 97161; 99285; A9576; G0378